=== PATIENT | female | born 1995 ===

== ENCOUNTER 2018-04-26 20:14 | Emergency (ER) | payer OTHER, BC ==
[2018-04-26 20:21] VITALS: PULSE 90; TEMP 98; O2SAT 99
[2018-04-26] MEDS ORDERED: Acetaminophen-Codeine 300/30 mg Tab PO STA (20:31)
[2018-04-26] MEDS ORDERED: Neomycin/Polymyxin/Hydrocort Otic Soln BOTTLE AU STA (20:33)
[2018-04-26] MEDS ORDERED: Acetaminophen-Codeine 300/30 mg Tab PO ONE ×2 (20:35→21:19)
--- NOTE | 2018-04-26 20:43 | C.PDOC ---
History Of Present Illness 23 y/o female presents to ER with c/o of right earache progressively worse since yesterday. Pt states was seen 1 week ago for right ear infection and was placed on amoxicillin with minimal improvement but pain has much worsened now. Pt denies drainage (but states had moderate drainage prior to taking the amoxicillin), fever, URI sx, trauma, headache, dizziness Time Seen by Provider: 04/26/18 20:27 Chief Complaint (Nursing): ENT Problem History Per: Patient History/Exam Limitations: None Onset/Duration Of Symptoms: Days Current Symptoms Are (Timing): Still Present Quality (Ear): Pain W/Touch Symptoms Have Been: Continuous Past Medical History Reviewed: Historical Data, Nursing Documentation, Vital Signs Vital Signs: Last Vital Signs Temp 98 F 04/26/18 20:19 Pulse 90 04/26/18 20:19 Resp 16 04/26/18 20:19 BP Pulse Ox 99 04/26/18 20:19 - Medical History PMH: No Chronic Diseases Surgical History: No Surg Hx Family History: States: No Known Family Hx - Social History Hx Alcohol Use: No Hx Substance Use: No - Immunization History Hx Tetanus Toxoid Vaccination: Yes Hx Influenza Vaccination: Yes Hx Pneumococcal Vaccination: No Review Of Systems Except As Marked, All Systems Reviewed And Found Negative. Constitutional: Negative for: Fever, Chills ENT: Positive for: Ear Pain (right). Negative for: Ear Discharge Genitourinary: Negative for: Dysuria, Hematuria Neurological: Negative for: Headache, Dizziness Physical Exam - Physical Exam Appears: Non-toxic, No Acute Distress Skin: Warm, Dry, No Rash Head: Normacephalic Eye(s): bilateral: Normal Inspection Ear(s): Left: Normal, Right: Other (Dry exudate and mild erythema to right ear canal. Unable to visualize TM due to exudate. Right tragal tenderness ) Nose: Normal Oral Mucosa: Moist Tongue: Normal Appearing Lips: Normal Appearing Teeth: Normal Dentition Gingiva: Normal Appearing Throat: Normal, No Erythema, No Exudate Neck: Supple Chest: Symmetrical Cardiovascular: Rhythm Regular Respiratory: Normal Breath Sounds, No Rales, No Rhonchi, No Wheezing Neurological/Psych: Oriented x3, Normal Speech Gait: Steady ED Course And Treatment O2 Sat by Pulse Oximetry: 99 (RA) Pulse Ox Interpretation: Normal Progress Note: Patient treated with Tylenol/Codeine and Cortisporin. On re-examination, patient is resting comfortably in no acute distress. Patient reports improvement of symptoms. Patient given follow up instructions. Instructed to return to ER if symptoms worsen or new symptoms arise. Disposition - Disposition Referrals: Tyrone Quezada MD [Staff Provider] - Disposition: HOME/ ROUTINE Disposition Time: 20:38 Condition: STABLE Additional Instructions: Please follow up with PMD/ ENT Continue motrin for pain up to 800mg and if still pain may take 1 tab of tylenol with codeine AVOID WATER OR Q-TIP IN EAR RETURN TO ER IF SEVERE PAIN, FACIAL SWELLING OR WORSE Prescriptions: Acetaminophen with Codeine [Tylenol with Codeine No. 3 300 mg-30 mg] 1 tab PO Q6 #10 tab Instructions: Outer Ear Infection (DC) Forms: PEER ([place]) - Clinical Impression Clinical Impression: Otitis externa - PA / CERTIFIED OPHTHALMIC TECHNICIAN / Resident Statement MD/ has reviewed & agrees with the documentation as recorded. - Scribe Statement The provider has reviewed the documentation as recorded by the Scriblesia Titus All medical record entries made by the Scribe were at my direction and personally dictated by me. I have reviewed the chart and agree that the record accurately reflects my personal performance of the history, physical exam, medic al decision making, and the department course for this patient. I have also personally directed, reviewed, and agree with the discharge instructions and disposition.
[2018-04-26 21:20] VITALS: RESP 20
== END 2018-04-26 21:19 | disposition home or self-care (01) ==
LOC: C.ER 20:14
DX: H60.91 Unspecified otitis externa, right ear (principal)